=== PATIENT | male | born 1995 | race Caucasian/White ===

== ENCOUNTER 2024-02-27 09:40 | Emergency (ER) | payer OTHER ==
[~2024-02-27] VITALS: Ht 177.8 cm; Wt 90.9 kg
[2024-02-27 09:50] VITALS: TEMP 97.5
[2024-02-27 10:23] LABS: BASO % 0.6 % (0.0-2.0); EOS % 0.1 % (0.0-4.0); GRAN # 4.9 K/mm3 (1.4-6.5); GRAN % 72.1 % (42.2-75.2); HEMATOCRIT 51.6 % (42.0-52.0); HEMOGLOBIN 17.1 g/dl (13.5-18.0); LYMPH # 1.5 K/mm3 (1.2-3.4); LYMPH % 22.2 % (20.0-51.0); MEAN CELL VOLUME 78 fl (80.0-100.0); MEAN CORPUSCULAR HEMOGLOBIN 26 pg (27-31); MEAN CORPUSCULAR HGB CONC 33 g/dl (33.0-37.0); MEAN PLATELET VOLUME 8.7 fl (7.4-10.4); MONO # 0.3 K/mm3 (0.1-0.6); MONO % 4.6 % (1.7-9.3); PLATELET COUNT 231 K/mm3 (130-400); RED BLOOD COUNT 6.64 M/mm3 (4.20-5.60); REDCELL DISTRIBUTION WIDTH-CV 13.2 % (11.5-14.5)
[2024-02-27 10:44] LABS: CREATININE, serum 1.26 mg/dL (0.72-1.25); POTASSIUM 4.1 mEq/L (3.5-4.5); TOTAL PROTEIN 8.4 g/dl (6.2-8.1)
[2024-02-27 10:50] LABS: TROPONIN-I 0.014 ng/mL (0.00-0.033)
[2024-02-27] MEDS ORDERED: NS 1,000 ML IV ONE (11:00)
[2024-02-27] MEDS ORDERED: PRINIVIL10 MG PO (11:23)
[2024-02-27 12:20] VITALS: BP 187/110; PULSE 86
== END 2024-02-27 12:20 | disposition home or self-care (01) ==
LOC: COL.ER 09:40
PROVIDERS: Physician Assistant
DX: I10 Essential (primary) hypertension (principal)
CPT/HCPCS: J7030